=== PATIENT | female | born 1985 | race Two or more races ===

== ENCOUNTER 2024-06-02 11:45 | Inpatient (IN) | payer OTHER ==
[~2024-06-02] VITALS: Ht 167.6 cm; Wt 3.2 kg
[2024-06-02 13:01] LABS: HEMATOCRIT 35.1 % (36.0-45.00); HEMOGLOBIN 11.4 g/dL (12.0-15.00); MEAN CORPUSCULAR HEMOGLOBIN 24.1 pg (27.00-32.0); MEAN CORPUSCULAR HGB CONC 32.6 g/dl (32.0-36.0); PLATELET COUNT 279 K/uL (150-450); RED BLOOD COUNT 4.75 M/uL (4.00-6.00); RED CELL DISTRIBUTION WIDTH 21.8 % (11.5-14.5)
[2024-06-02 13:20] LABS: PARTIAL THROMBOPLASTIN TIME 29.5 SECONDS (22.0-34.0); PROTHROMBIN TIME 10.9 SECONDS (9.0-11.5)
[2024-06-02 13:30] LABS: ALBUMIN 2.6 gm/dL (3.4-5.0); BILIRUBIN TOTAL 0.54 mg/dL (0.3-1.2); CALCIUM 8.9 mg/dL (8.5-10.1); CREATININE SERUM 0.44 mg/dL (0.55-1.02); GFR 158.37; GLOBULINA 3.9 G/DL (2.4-3.5); POTASSIUM 4.34 mEq/L (3.5-5.1); TOTAL PROTEIN 6.5 gm/dL (6.4-8.2)
[2024-06-15] MEDS ORDERED: PRENATAL + DHA1 EAC1 PO (07:23)
[2024-06-15] MEDS ORDERED: IRON325 MG PO (07:24)
[2024-06-15 07:25] VITALS: BP 121/84
[2024-06-15] MEDS ORDERED: OXYTOCIN 10 UNITS/ML VIAL ONE (09:45)
[2024-06-15] MEDS ORDERED: ERYTHROMYCIN BASE OPHT 1GM EACH TUBE OP ONE (09:46)
[2024-06-15] MEDS ORDERED: CITRIC ACID/SODIUM CITRATE 30 ML BLIST.PACK PO ONE (10:03)
[2024-06-15] MEDS ORDERED: CEFAZOLIN SODIUM 1,000 MG VIAL ONE (10:04)
[2024-06-15] MEDS ORDERED: MORPHINE SULFATE 4 MG/ML CARTRIDGE IV PRN (12:00)
[2024-06-15] MEDS ORDERED: OXYTOCIN 1,000 ML IV SCH (12:00)
[2024-06-15] MEDS ORDERED: MORPHINE SULFATE 4 MG/ML VIAL IV ONE ×2 (13:00→13:30)
[2024-06-15 14:30] VITALS: BP 140/84
[2024-06-15] MEDS ORDERED: PROMETHAZINE HCL 25 MG/ML AMPUL IV PRN (15:30)
[2024-06-15] MEDS ORDERED: MEPERIDINE HCL/PF 25 MG/ML VIAL IV PRN (15:30)
[2024-06-15 16:17] VITALS: BP 136/83
[2024-06-15 20:00] VITALS: BP 130/81
[2024-06-16] VITALS: BP 125/74
[2024-06-16 08:31] VITALS: BP 120/75
[2024-06-16] MEDS ORDERED: IBUprofen 400 MG TABLET PO SCH (09:00)
[2024-06-16 09:37] LABS: HEMATOCRIT 35.3 % (36.0-45.00); HEMOGLOBIN 11.4 g/dL (12.0-15.00); MEAN CELL VOLUME 76.1 fL (80.00-100.00); MEAN CORPUSCULAR HEMOGLOBIN 24.7 pg (27.00-32.0); MEAN CORPUSCULAR HGB CONC 32.4 g/dl (32.0-36.0); PLATELET COUNT 210 K/uL (150-450); RED BLOOD COUNT 4.64 M/uL (4.00-6.00); RED CELL DISTRIBUTION WIDTH 21.4 % (11.5-14.5)
[2024-06-16 16:19] VITALS: BP 118/83
[2024-06-17 01:26] VITALS: BP 126/82
[2024-06-17] MEDS ORDERED: OxyCODONE HCL 5 MG TABLET (ROXICODONE) PO PRN (06:00)
[2024-06-17 08:33] VITALS: BP 134/76
== END 2024-06-17 13:01 | disposition home or self-care (01) | DRG 785 ==
LOC: OB/GYN 06-15 07:00 → O/R 06-15 07:00 → OB/GYN 06-15 10:25 → LDR 06-15 11:45 → OB/GYN 06-17 13:01
PROVIDERS: Obstetrics & Gynecology; ADMIT Obstetrics & Gynecology Maternal & Fetal Medicine; ATTEND Obstetrics & Gynecology Maternal & Fetal Medicine
PROC: 0UB70ZZ Excision of Bilateral Fallopian Tubes, Open Approach (ICD-10-PCS; 2024-06-15)
PROC: 4A1HXCZ Monitoring of Products of Conception, Cardiac Rate, External Approach (ICD-10-PCS; 2024-06-15)
PROC: 10D00Z1 Extraction of Products of Conception, Low, Open Approach (ICD-10-PCS; principal; 2024-06-15 13:15)
DX: O34.211 Maternal care for low transverse scar from previous cesarean delivery (principal); Z3A.39 39 weeks gestation of pregnancy; Z37.0 Single live birth; Z30.2 Encounter for sterilization